=== PATIENT | male | born 1995 ===

== ENCOUNTER 2022-11-02 21:48 | Emergency (ER) | payer OTHER ==
[2022-11-02] MEDS ORDERED: LIDOCAINE 1% 20 ML MDV ONE (22:31)
[2022-11-02] MEDS ORDERED: KETOROLAC 30 MG/ML INJ ONE (22:32)
[2022-11-02] MEDS ORDERED: ONDANSETRON 4 MG/2 ML VIAL ONE (22:32)
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
[2022-11-02 23:09] LABS: Hematocrit 40.6 % (39.6-49.0); Lymphocytes % 14.3 % (15.3-44.8); MCV 87.2 fL (80-100); MPV 7.7 fL (7.6-11.3); RBC Red Blood Cell Count 4.66 M/uL (4.33-5.43)
[2022-11-02 23:11] LABS: Protime INR 0.99
[2022-11-02 23:17] LABS: Potassium 4.1 mEq/L (3.5-5.1)
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
[2022-11-03 02:58] VITALS: TEMP 98.5
[2022-11-03 03:14] VITALS: BP 124/76; O2SAT 100
== END 2022-11-03 02:48 | disposition home or self-care (01) ==
LOC: ER 21:48
PROC: 0HQ2XZZ Repair Right Ear Skin, External Approach (ICD-10-PCS; principal; 2022-11-03)
PROC: 0HQ1XZZ Repair Face Skin, External Approach (ICD-10-PCS; 2022-11-03)
DX: S01.111A Laceration without foreign body of right eyelid and periocular area, initial encounter (principal); S02.31XA Fracture of orbital floor, right side, initial encounter for closed fracture; S01.311A Laceration without foreign body of right ear, initial encounter
CPT/HCPCS: 85025; 80048; 36415; 86900; 86850; 85610; 86901; 70450; 72125; 70486; 76377; 12013; J2001; J2405